=== PATIENT | female | born 1970 | race Caucasian/White ===

== ENCOUNTER 2016-08-08 19:07 | Emergency (ER) | payer MEDICAID ==
[~2016-08-08] VITALS: Ht 152.4 cm; Wt 61.5 kg
[2016-08-08 20:01] VITALS: Ht 152.4 cm; Wt 61.5 kg
[2016-08-08] MEDS ORDERED: HYDROCODONE/APAP (5/325) TAB PO ONE (21:00)
[2016-08-08] MEDS ORDERED: KETOROLAC 60 MG INJ IM STA (21:29)
--- NOTE | 2016-08-09 01:57 | ERD ---
ER Documentation Chief Complaint Date/Time DATE: 08/09/16 TIME: 01:52 Chief Complaint Root canal Friday. Dental pain and only has motrin for pain HPI 45-year-old female with no significant past medical history presents to the ED stating that she got a root canal 4 days ago. States that she got a root canal of her right second maxillary molar. States that she was unable to fill the Vicodin due to incorrect dosage. States that she will follow-up with the dentist tomorrow however needs something for pain currently. She reports that she is currently taking Augmentin. States ibuprofen is not working for her pain. Denies any fever, chills, dysphagia, odynophagia, weakness, numbness or tingling, headache, sinus pain. ROS All systems reviewed and are negative except as per history of present illness. Allergies Allergies: Coded Allergies: No Known Allergy (Unverified , 08/08/16) PMhx/Soc Medical and Surgical Hx: pt denies Medical Hx, pt denies Surgical Hx History of Surgery: No Anesthesia Reaction: No Hx Neurological Disorder: No Hx Respiratory Disorders: No Hx Cardiac Disorders: No Hx Psychiatric Problems: No Hx Miscellaneous Medical Probl: No Hx Alcohol Use: No Hx Substance Use: No Hx Tobacco Use: No Smoking Status: Never smoker Physical Exam Vitals Vital Signs Date Time Temp Pulse Resp B/P Pulse Ox O2 Delivery O2 Flow Rate FiO2 08/08/16 20:01 98.0 77 20 155/103 99 Physical Exam Const: [id number], well-nourished. In no acute distress. Head: Atraumatic, normocephalic Eyes: Normal Conjunctiva without injection. No purulent discharge. PERRL. EOMI ENT: Normal external ear. Ear canal without erythema. Tympanic membrane pearly willams without effusion or bulging. Nasal canal clear with normal turbinates. Moist oropharynx without tonsillar exudates. Non-erythematous pharynx. Tenderness to palpation of the right maxillary second molar. No fluctuance or induration. No erythema. Uvula midline. No drooling. No trismus. Neck: Full range of motion. No meningismus. No cervical lymphadenopathy. Resp: Clear to auscultation bilaterally. No wheezing, rhonchi, rales, or crackles. No accessory muscle use. No retractions. Cardio: Regular rate and rhythm. No murmurs, rubs or gallops. Abd: Soft, non tender, non distended. Normal bowel sounds. No palpable masses. No rebound tenderness. No guarding. Skin: No petechiae or rashes Back: No midline tenderness. No CVA tenderness. Ext: No cyanosis, or edema. Neur: Awake and alert. Psych: Normal Mood and Affect Results 24 hrs Current Medications Medications (Trade) Dose Ordered Sig/Duane Route PRN Reason Start Time Stop Time Status Last Admin Dose Admin Acetaminophen/ Hydrocodone Bitart (Riverside (5/325)) 1 tab ONCE ONCE PO 08/08/16 21:00 08/08/16 21:01 DC 08/08/16 20:45 Ketorolac Tromethamine (Toradol) 60 mg ONCE STAT IM 08/08/16 21:29 08/08/16 21:30 DC 08/08/16 21:50 Procedures/MDM This is a 45-year-old female with a past medical history presents to the ED complaining of right upper second molar dental pain after a for canal performed on Friday, 4 days ago. Patient is afebrile and nontoxic-appearing. Patient was treated here in the ED with Riverside 5-325 mg and Toradol 60 IM with improvement of her pain. Since patient does have a prescription for Vicodin, I instructed her to follow up with her dentist for correction of the dosage on the prescription so that she can fill the prescription. Low suspicion for dental abscess. Patient's physical exam include lungs which were clear to auscultation and a normal pulse oximetry. Bilateral ears pearly dobbs. No tenderness to palpation of tragus or mastoid. Low suspicion for mastoiditis, otitis externa, otitis media. Patient is speaking in full sentences. There is a low suspicion for pneumonia, epiglottitis, Hawk's angina, sinusitis, peritonsillar abscess, retropharyngeal abscess, meningitis, sepsis, acute abdomen or other emergent conditions. Follow up with the dentist on 08/09/16Friday. Continue taking Augmentin as prescribed at the dentist. Instructed patient to return to the ED sooner for any worsening symptoms. Patient's questions were answered. Patient understood and agreed with discharge plan. Patient discharged stable. Departure Diagnosis: Primary Impression: Pain, dental Condition: Stable Patient Instructions: Understanding Root Canal: Overview, Dental Pain Referrals: COMMUNITY CLINICS YOU HAVE RECEIVED A MEDICAL SCREENING EXAM AND THE RESULTS INDICATE THAT YOU DO NOT HAVE A CONDITION THAT REQUIRES URGENT TREATMENT IN THE EMERGENCY DEPARTMENT. FURTHER EVALUATION AND TREATMENT OF YOUR CONDITION CAN WAIT UNTIL YOU ARE SEEN IN YOUR DOCTORS OFFICE WITHIN THE NEXT 1-2 DAYS. IT IS YOUR RESPONSIBILITY TO MAKE AN APPOINTMENT FOR FOLOW-UP CARE. IF YOU HAVE A PRIMARY DOCTOR --you should call your primary doctor and schedule an appointment IF YOU DO NOT HAVE A PRIMARY DOCTOR YOU CAN CALL OUR PHYSICIAN REFERRAL HOTLINE AT IF YOU CAN NOT AFFORD TO SEE A PHYSICIAN YOU CAN CHOSE FROM THE FOLLOWING [facility] [address] [facility] [address] [facility] [address] [facility] [facility] [address] [facility] [facility] [address] [facility]. [facility] [address] [facility]. [facility] YOU HAVE RECEIVED A MEDICAL SCREENING EXAM AND THE RESULTS INDICATE THAT YOU DO NOT HAVE A CONDITION THAT REQUIRES URGENT TREATMENT IN THE EMERGENCY DEPARTMENT. FURTHER EVALUATION AND TREATMENT OF YOUR CONDITION CAN WAIT UNTIL YOU ARE SEEN IN YOUR DOCTORS OFFICE WITHIN THE NEXT 1-2 DAYS. IT IS YOUR RESPONSIBILITY TO MAKE AN APPOINTMENT FOR FOLOW-UP CARE. IF YOU HAVE A PRIMARY DOCTOR --you should call your primary doctor and schedule and appointment IF YOU DO NOT HAVE A PRIMARY DOCTOR YOU CAN CALL OUR PHYSICIAN REFERRAL HOTLINE AT . IF YOU CAN NOT AFFORD TO SEE A PHYSICIAN YOU CAN CHOSE FROM THE FOLLOWING [facility] INSTITUTIONS: [facility] [address] [place] [address] [facility] [address] [place] [address] [facility] [address] [place] [address] [facility] DENTIST ([facility] walk in clinic) Additional Instructions: YOU HAVE BEEN TREATED FOR YOUR PAIN HERE IN THE ER. CALL YOUR DENTIST TO GET YOUR VIDOCIN PRESCRIPTION CLARIFIED AND CORRECTED. FOLLOW UP WITH THE DENTIST TOMORROW 08/09/16. Return to this facility if you are not improving as expected. ROBERT ALMONTE PA-C Aug 09, 2016 01:57
== END 2016-08-08 21:57 | disposition home or self-care (01) ==
LOC: FTE 19:07
DX: G89.18 Other acute postprocedural pain (principal); K08.89 Other specified disorders of teeth and supporting structures
CPT/HCPCS: J1885; Z7610; 96372

== ENCOUNTER 2016-11-26 10:33 | Emergency (ER) | payer OTHER, MEDICAID ==
[~2016-11-26] VITALS: Ht 157.5 cm; Wt 57.5 kg
[2016-11-26 10:37] VITALS: Ht 157.5 cm; Wt 57.5 kg
[2016-11-26 11:44] LABS: BASOPHILS % 0.5 % (0.0-2.0); EOSINOPHILS # 0.1 10^3/ul (0.0-0.5); EOSINOPHILS % 1.9 % (0.0-7.0); HEMATOCRIT 37.4 % (37.0-47.0); HEMOGLOBIN 12.3 g/dl (12.0-16.0); LYMPHOCYTES # 1.6 10^3/ul (0.8-2.9); LYMPHOCYTES % 24.7 % (15.0-51.0); MEAN CORPUSCULAR HEMOGLOBIN 26.7 pg (29.0-33.0); MEAN CORPUSCULAR HGB CONC 32.9 g/dl (32.0-37.0); MEAN CORPUSCULAR VOLUME 81.1 fl (82.0-101.0); MEAN PLATELET VOLUME 9.9 fl (7.4-10.4); MONOCYTE # 0.6 10^3/ul (0.3-0.9); MONOCYTES % 9.7 % (0.0-11.0); NEUTROPHIL # 3.9 10^3/ul (1.6-7.5); NEUTROPHILS % 62.7 % (39.0-77.0); PLATELET COUNT 338 10^3/UL (140-415); RED BLOOD COUNT 4.61 10^6/ul (4.20-5.40); RED CELL DISTRIBUTION WIDTH 13.1 % (11.5-14.5); WHITE BLOOD COUNT 6.3 10^3/ul (4.8-10.8)
--- NOTE | 2016-11-26 11:52 | ERD ---
ER Documentation Chief Complaint Date/Time DATE: 11/26/16 TIME: 11:45 Chief Complaint rectal bleeding x 2 days HPI A pourer off has been used. This is a very pleasant 46-year-old female with no past medical history presents with several days of rectal bleeding usually with stool. She states that she was seen in urgent care and sent to the emergency room for a colonoscopy because she was told that because she does not have a hemorrhoid she probably has cancer. Patient denies any hematemesis, liver disease, no weight loss, no family history of colon cancer. The patient has no further bleeding today. The patient is extremely worried because she was told this information. ROS All systems reviewed and are negative except as per history of present illness. Medications Home Meds Active Scripts Hydrocortisone Acetate (Anusol-Hc) 25 Mg Supp.rect, 1 SUPP OH BID Y for HEMORROID PAIN/ITCHING, #12 SUPP.RECT Prov:JEREMY BARAHONA MD 11/26/16 Allergies Allergies: Coded Allergies: No Known Allergy (Unverified , 11/26/16) PMhx/Soc Medical and Surgical Hx: pt denies Medical Hx, pt denies Surgical Hx History of Surgery: No Anesthesia Reaction: No Hx Neurological Disorder: No Hx Respiratory Disorders: No Hx Cardiac Disorders: No Hx Psychiatric Problems: No Hx Miscellaneous Medical Probl: No Hx Alcohol Use: No Hx Substance Use: No Hx Tobacco Use: No FmHx Family History: No diabetes Physical Exam Vitals Vital Signs Date Time Temp Pulse Resp B/P Pulse Ox O2 Delivery O2 Flow Rate FiO2 11/26/16 10:37 97.0 83 18 153/91 99 Physical Exam General: Well developed, well nourished, no acute distress Head: Normocephalic, atraumatic. Eyes: Pupils equally reactive, EOM intact ENT: Moist mucous membranes Neck: Supple, no lymphadenopathy Respiratory: Lungs clear bilaterally, no distress Cardiovascular: RRR, no murmurs, rubs, or gallops Abdominal: Soft, non-tender, non-distended, no peritoneal signs : Chaperoned rectal exam reveals a small proximally 1 cm external hemorrhoid, no active bleeding, no thrombosis, internal examination with brown stool, no melena, no blood, no internal hemorrhoids. MSK: No edema, no unilateral swelling, 5/5 strength Neurologic: Alert and oriented, moving all extremities, normal speech, no focal weakness, no cerebellar signs Skin: No rash Psych: Normal mood Result Diagram: 11/26/16 1126 Results 24 hrs Laboratory Tests Test 11/26/16 11:26 White Blood Count 6.310^3/ul Red Blood Count 4.6110^6/ul Hemoglobin 12.3g/dl Hematocrit 37.4% Mean Corpuscular Volume 81.1fl Mean Corpuscular Hemoglobin 26.7pg Mean Corpuscular Hemoglobin Concent 32.9g/dl Red Cell Distribution Width 13.1% Platelet Count 41716^3/UL Mean Platelet Volume 9.9fl Neutrophils % 62.7% Lymphocytes % 24.7% Monocytes % 9.7% Eosinophils % 1.9% Basophils % 0.5% Nucleated Red Blood Cells % 0.0/100WBC Neutrophils # 3.910^3/ul Lymphocytes # 1.610^3/ul Monocytes # 0.610^3/ul Eosinophils # 0.110^3/ul Basophils # 0.010^3/ul Nucleated Red Blood Cells # 0.010^3/ul Prothrombin Time 14.9Sec Prothrombin Time Ratio 1.2 INR International Normalized Ratio 1.16 Activated Partial Thromboplast Time 27.7Sec Procedures/MDM I believe the patient has been given misinformation from her primary care team. The patient has rectal bleeding that seems shows a resolved that is likely secondary to external hemorrhoid versus diverticulosis. The patient has no risk factors for colon cancer. While the patient would benefit from outpatient GI follow-up and colonoscopy to rule out alternative causes I do not believe the patient has risk factors for colon cancer. The patient was given reassurance and provided with more accurate information. She has no evidence of active hemorrhage currently. No si/sx of upper GI bleeding or active bleeding. I will check cbc and coags to r/o coagulopathy though low clinical concern. I will provide the patient with referral information to a general surgeon and GI speciality for her hemorrhoid and colonoscopy as an outpatient. Trial of Anusol would be reasonable. I have tried to reach out to clinic to educate on ER referrals. No answer at this time and no callback. The patient's laboratory testing shows no evidence of acute process. The patient was provided with referral information and all questions were answered. We discussed follow up with the patient's primary care doctor within 24 to 48 hours as needed. We also discussed return to the emergency room for worsening symptoms or worsening condition. Outpatient referral: General surgery, gastroenterology Discharge Medications: Anusol Departure Diagnosis: Primary Impression: External hemorrhoid Additional Impression: Rectal bleeding Condition: Stable JEREMY BARAHONA MD Nov 26, 2016 11:52
[2016-11-26] MEDS ORDERED: HYDR25SU23 PR (12:06)
[2016-11-26 12:10] LABS: PT RATIO 1.2
[2016-11-26 12:11] LABS: PARTIAL THROMBOPLASTIN TIME 27.7 Sec (25.0-35.0)
[2016-11-26 12:58] LABS: INR 1.16; PROTIME 14.9 Sec (12.2-14.2)
== END 2016-11-26 13:06 | disposition home or self-care (01) ==
LOC: E/R 10:33
DX: K64.4 Residual hemorrhoidal skin tags (principal)
CPT/HCPCS: 36415; 85025; 85610; 85730; 99283

== ENCOUNTER 2017-06-08 20:49 | Emergency (ER) | END 2017-06-09 00:32 | disposition home or self-care (01) ==

== ENCOUNTER 2017-06-25 12:26 | Emergency (ER) | END 2017-06-25 19:21 | disposition home or self-care (01) ==

== ENCOUNTER 2017-07-24 22:26 | Emergency (ER) | END 2017-07-25 01:51 | disposition home or self-care (01) ==

== ENCOUNTER 2018-04-24 09:19 | Emergency (ER) | END 2018-04-24 12:31 | disposition home or self-care (01) ==